=== PATIENT | female | born 1945 | race Caucasian/White ===

== ENCOUNTER 2020-05-06 05:58 | Day surgery (SDC) | payer MEDICARE, BC ==
[2020-05-04 13:47] VITALS: BMI 41.6
[~2020-05-06 05:58] MED LIST: LACTATED RINGERS 1,000 ML IV SCH; SODIUM CHLORIDE 0.9% 1,000 ML IV SCH
[2020-05-06 06:38] VITALS: TEMP 98.5
[2020-05-06] MEDS ORDERED: SODIUM CHLORIDE 0.9% 500 ML 500 ML IV ONE (06:40)
[2020-05-06] MEDS ORDERED: PROPOFOL 10 MG/ML 20 ML VIAL IV ONE (07:20)
[2020-05-06 07:55] VITALS: RESP 16
[2020-05-06 09:13] VITALS: PULSE 50
[2020-05-06 10:54] VITALS: BP 127/65
--- NOTE | 2020-05-06 14:34 | PCN ---
PROCEDURE NOTE DATE OF SERVICE: 05/06/2020 PROCEDURE: Electrical cardioversion. INDICATION: Persistent atrial fibrillation in spite of pharmacological efforts. CLINICAL INFORMATION: Mrs. Zakiya Prabhakar is a 74-year-old lady with hypertension and hyperlipidemia who has developed a recent onset persistent atrial fibrillation. I started her on amiodarone for 3 weeks without significant improvement. She remains in atrial fibrillation. She was brought in for elective cardioversion. She was on Xarelto uninterrupted for at least 2 months. PROCEDURE NOTE: Under the influence of ultra short-acting intravenous anesthetic agent with the attendance of the anesthesiologist, a single shock was delivered with anterior and posterior patches. Patient converted to sinus rhythm. She remained hemodynamically stable and neurologically intact. This was a successful electrical cardioversion. MMLARA / TAYLORN: [id number] /
== END 2020-05-06 10:47 | disposition home or self-care (01) ==
LOC: CATHCVL 05:58
PROVIDERS: ATTEND Internal Medicine Interventional Cardiology
DX: I48.19 Other persistent atrial fibrillation (principal); I12.9 Hypertensive chronic kidney disease with stage 1 through stage 4 chronic kidney disease, or unspecified chronic kidney disease; N18.3 Chronic kidney disease, stage 3 (moderate); E66.9 Obesity, unspecified; Z68.41 Body mass index [BMI] 40.0-44.9, adult; E78.5 Hyperlipidemia, unspecified; E78.00 Pure hypercholesterolemia, unspecified; F32.9 Major depressive disorder, single episode, unspecified; G47.33 Obstructive sleep apnea (adult) (pediatric); Z99.89 Dependence on other enabling machines and devices; Z79.01 Long term (current) use of anticoagulants; Z79.899 Other long term (current) drug therapy; Z88.1 Allergy status to other antibiotic agents; Z88.5 Allergy status to narcotic agent
CPT/HCPCS: 92960; J2704

== ENCOUNTER → 2023-09-20 | Outpatient (CLI) | payer MEDICARE, BC ==
--- NOTE | 2023-09-20 16:17 | US ---
EXAMINATION TYPE: US kidneys/renal and bladder DATE OF EXAM: 09/20/2023 COMPARISON: NONE CLINICAL INDICATION: Female, 78 years old with history of R31.1 BENIGN ESSENTIAL MICROSCOPIC HEMATURI A; Microscopic hematuria EXAM MEASUREMENTS: Right Kidney: 9.9 x 3.6 x 4.1 cm Left Kidney: 11.0 x 4.6 x 4.4 cm Technical limitations due to large amount of overlying bowel gas Right Kidney: possible double collecting system Left Kidney: no evidence of hydronephrosis Bladder: appears wnl Bilateral Jets seen: no There is no evidence for hydronephrosis at this point in time. No nephrolithiasis is seen. Suggested right duplex kidney. No masses are identified. The urinary bladder is anechoic. Bilateral uretera l jets are not seen. IMPRESSION: Limited examination due to overlying bowel gas. 1. No hydronephrosis or nephrolithiasis. 2. Suggested right duplex kidney.
== END | disposition home or self-care (01) ==
LOC: RADUSWWP 15:13
PROVIDERS: ATTEND Urology
DX: R31.1 Benign essential microscopic hematuria (principal)
CPT/HCPCS: 76770

== ENCOUNTER → 2023-12-21 | Outpatient (CLI) | payer MEDICARE, BC ==
--- NOTE | 2023-12-21 12:17 | CT ---
EXAMINATION TYPE: CT brain wo con CT DLP: 1159 mGycm, Automated exposure control for dose reduction was used. DATE OF EXAM: 12/21/2023 11:27 AM COMPARISON: None. CLINICAL INDICATION:Female, 78 years old with history of G44.321 CHRONIC POST-TRAUMATIC HEADACHE, INT RACTAB, headache TECHNIQUE: Brain: Axial CT images of the brain were obtained with coronal and sagittal reformats created and rev iewed. Contrast used: None. Oral contrast used: None. FINDINGS: Brain: Extra-axial spaces: No abnormal extra-axial fluid collections. Ventricular system: Dilatation in proportion to cerebral atrophy. Cerebral parenchyma: Cerebral atrophy. No acute intraparenchymal hemorrhage or mass effect. The ramon -white junction is well differentiated. Scattered hypoattenuating areas are seen within the white mat ter. Cerebellum: Unremarkable. Mass effect: No evidence of midline shift. Intracranial vasculature: unremarkable Soft tissues: Normal. Calvarium/osseous structures: No depressed skull fracture. Paranasal sinuses and mastoid air cells: Mild scattered paranasal sinus disease. Visualized orbits: Bilateral aphakia IMPRESSION: 1. No acute intracranial process. 2. Nonspecific white matter changes, likely secondary to chronic small vessel ischemic disease.
== END | disposition home or self-care (01) ==
LOC: RADCTMAIN 11:10
PROVIDERS: ATTEND Psychiatry & Neurology Neurology
DX: G93.89 Other specified disorders of brain (principal); G44.321 Chronic post-traumatic headache, intractable; S09.90XA Unspecified injury of head, initial encounter; X58.XXXA Exposure to other specified factors, initial encounter
CPT/HCPCS: 70450

== ENCOUNTER → 2025-05-13 | Outpatient (CLI) | payer MEDICARE, BC ==
--- NOTE | 2025-05-13 11:30 | MR ---
EXAMINATION TYPE: MR abdomen wo con DATE OF EXAM: 05/13/2025 10:45 AM INDICATION: Patient age:Female; 79 years old; Reason for study: R93.41 ABNORMAL r KIDNEY; [facility]. COMPARISON: Renal ultrasound 09/20/2023 TECHNIQUE: Multiplanar multi-sequence imaging was performed without IV contrast. Evaluation is limit ed due to lack of intravenous contrast. FINDINGS: LOWER CHEST: Bilateral lower lobe subsegmental atelectasis. Moderate cardiomegaly. No pericardial eff usion. Embolization of the right hemidiaphragm. ABDOMEN Liver: Unremarkable. No fatty infiltration. Gallbladder and Bile ducts: Gallbladder is unremarkable without evidence for cholelithiasis. Mild pro minence of the common bile duct measuring up to 8 mm which is age-appropriate. No intrahepatic biliar y ductal dilatation. Pancreas: No pancreatic ductal dilatation. There is a multiloculated 2.3 cm cystic lesion within the pancreatic head (series 701, image 30). This appears to connect to the main pancreatic duct. Addition al multiloculated cystic lesion involving the pancreatic tail measuring up to 2.3 cm (series 701, estephanie ge 35). Evaluation for marrow nodularity is limited due to lack of intravenous contrast. There is sug gestive T2 hypointense central scar. Spleen: Unremarkable. Adrenal glands: Unremarkable. Kidneys: No hydronephrosis. Prominent bilateral extrarenal pelvises. Duplex right kidney. No suspicio us lesion within the limitations of a noncontrast exam. Stomach and Bowel: Unremarkable as visualized. Peritoneum: No evidence of pneumoperitoneum, free fluid, or adenopathy. Vasculature: Unremarkable. No aortic aneurysm. Abdominal wall: Unremarkable. Musculoskeletal: The osseous structures appear intact. Minimal sclerotic curvature of the lumbar spin e with apex at L2-L3. Multilevel degenerative disc disease. IMPRESSION: 1. No definitive evidence for renal mass with the limitations of a noncontrast exam. 2. Duplex right kidney. 3. There are 2 mildly septated cystic lesions within the pancreas measuring up to 2.3 cm each. No pa ncreatic duct dilatation. Evaluation is limited due to lack of intravenous contrast. These are favore d to represent serous cystadenomas versus other etiologies such as intraductal papillary mucinous reuben plasms or pseudocysts. Recommend follow-up MRI in 1 year to assess for stability. [facility], , 05/13/2025 11:28 AM
== END | disposition home or self-care (01) ==
LOC: RADMRIMAIN 09:55
PROVIDERS: ATTEND Urology
DX: K86.89 Other specified diseases of pancreas (principal); Q63.0 Accessory kidney; R93.41 Abnormal radiologic findings on diagnostic imaging of renal pelvis, ureter, or bladder
CPT/HCPCS: 74181